=== PATIENT | male | born 1945 | race Hispanic/Latino ===

== ENCOUNTER → 2022-02-14 | Outpatient (CLI) | payer OTHER ==
[~2022-02-14] MED LIST: ACET-3673 PO; ATOR40TA69 PO; CHOL2000 PO; DOCU-116 PO; FERR324T4 PO; FLUO20CA36 PO; INSLAN SQ; LATA2.5D15 OU; LEVO25CA4 PO; METO25TA6 PO; PANT40GR PO; PYRI25TA4 PO; TAMS-1 PO
== END | disposition home or self-care (01) ==
LOC: SHCH 10:15
PROVIDERS: ATTEND Internal Medicine Cardiovascular Disease
DX: I08.1 Rheumatic disorders of both mitral and tricuspid valves (principal); I10 Essential (primary) hypertension
CPT/HCPCS: 93306

== ENCOUNTER 2022-09-20 14:22 | Inpatient (IN) | payer OTHER ==
[~2022-09-20] VITALS: Ht 167.6 cm; Wt 86.6 kg
[2022-09-20 15:37] LABS: BASOPHILS % (AUTO) 0.6 % (0.0-5.0); EOSINOPHILS % (AUTO) 4.5 % (0.0-8.0); HEMATOCRIT 29.6 % (42-54); LYMPHOCYTES % (AUTO) 11.7 % (21.0-51.0); MEAN CORPUSCULAR HEMOGLOBIN 30.8 pg (27.0-33.0); MEAN CORPUSCULAR HGB CONC 35.5 g/dL (32.0-36.0); MEAN CORPUSCULAR VOLUME 86.8 fL (79-99); MONOCYTES % (AUTO) 5.9 % (3.0-13.0); NEUTROPHILS % (AUTO) 76.8 % (40.0-77.0); PLATELET COUNT (AUTO) 271 K/uL (130-400); RED BLOOD CELL COUNT(AUTO) 3.41 MIL/uL (4.50-6.20); RED CELL DISTRIBUTION WIDTH 13.2 % (11.0-15.5); WHITE BLOOD COUNT (AUTO) 9.3 K/uL (4.8-10.8)
[2022-09-20 15:46] LABS: POTASSIUM 4.2 mmol/L (3.5-5.1)
[2022-09-20 15:51] LABS: ALBUMIN 3.8 g/dL (3.5-5.0)
[2022-09-20] MEDS ORDERED: ONDANSETRON 4MG INJ IVP PRN (17:00)
[2022-09-20] MEDS ORDERED: ACETAMINOPHEN 500 MG TABLET PO PRN (17:00)
[2022-09-20] MEDS: Vitamin B Complex/Vit C/Folic Acid PO SCH (17:19)
[2022-09-20] MEDS: SODIUM BICARBONATE 650 MG TAB PO SCH (17:19)
[2022-09-20] MEDS: 0.9%NACL 1000ML 1,000 ML IV SCH (17:19)
[2022-09-20] MEDS: PANTOPRAZOLE 40 MG/VIAL IVP SCH (17:19)
[2022-09-20 17:30] LABS: INR 0.95 (0.85-1.15); PROTHROMBIN TIME 10.4 SEC (9.6-11.6)
[2022-09-20 17:32] LABS: PARTIAL THROMBOPLASTIN TIME 25.9 SEC (26.3-35.5)
[2022-09-20 17:35] LABS: HEMOGLOBIN A1C 7.7 % (4.0-6.0)
[2022-09-20 17:37] LABS: MAGNESIUM 1.6 mg/dL (1.80-2.40); PHOSPHORUS 4.5 mg/dL (2.5-4.9)
[2022-09-20] MEDS ORDERED: TORS20TA4 PO (17:37)
[2022-09-20] MEDS ORDERED: ASPI-1197 PO (17:37)
[2022-09-20] MEDS ORDERED: FINA5TAB41 PO (17:37)
[2022-09-20] MEDS ORDERED: METF-446 PO (17:37)
[2022-09-20] MEDS ORDERED: GABA600T10 PO (17:37)
[2022-09-20] MEDS ORDERED: LISI5TAB21 PO (17:37)
[2022-09-20] MEDS ORDERED: FURO20TA4 PO (17:37)
[2022-09-20] MEDS ORDERED: EMPA25TA PO (17:37)
[2022-09-20 17:45] LABS: CRP QUANTITATIVE 12.5 mg/L (0.00-9.0); THYROID STIMULATING HORMONE 1.78 uIU/mL (0.36-3.74); URIC ACID 9.9 mg/dL (2.6-7.2)
[2022-09-20 18:02] LABS: APPEARANCE,URINE CLEAR (CLEAR); BILIRUBIN,URINE NEGATIVE (NEGATIVE); COLOR,URINE YELLOW (YELLOW); GLUCOSE, URINE (UA) >=1000 mg/dL (NEGATIVE); KETONES,URINE NEGATIVE (NEGATIVE); LEUKOCYTE ESTERASE ,URINE NEGATIVE Leu/uL (NEGATIVE); NITRATE,URINE NEGATIVE (NEGATIVE); OCCULT BLOOD,URINE NEGATIVE (NEGATIVE); PROTEIN,URINE NEGATIVE (NEGATIVE); UROBILINOGEN,URINE 0.2 mg/dL (0.2-1.0)
[2022-09-20 18:04] LABS: CREATININE,URINE RANDOM 26 mg/dL (30-135); SODIUM,URINE RANDOM 60 mmol/l (40-220)
[2022-09-20 18:12] LABS: BACTERIA,URINE None Seen /HPF (None Seen); RBC,URINE 0-1 /HPF (0-1); SQUAMOUS EPITHELIAL CELL,UR None Seen /HPF (0-2); WBC,URINE 0-1 /HPF (0-1)
[2022-09-20 20:35] VITALS: BP 145/62
[2022-09-20] MEDS: METOPROLOL TARTRATE 25 MG TAB PO SCH (21:27)
[2022-09-20] MEDS: DOCUSATE SODIUM 100 MG CAP PO SCH (21:27)
[2022-09-20] MEDS: TAMSULOSIN HCL 0.4 MG CAP.ER.24H PO SCH (21:28)
[2022-09-20] MEDS: ATORVASTATIN 40 MG TABLET PO SCH (21:28)
[2022-09-20] MEDS: INSULIN HUMULIN R 100 UNIT/ML 3ML SQ SCH (21:37)
[2022-09-20] MEDS ORDERED: INSULIN GLARGINE 100 UNITS/ML 10 ML VIAL SQ ONE (22:30)
[2022-09-21 00:25] VITALS: BP 146/71
[2022-09-21 04:21] VITALS: BP 140/61
[2022-09-21 05:21] LABS: BASOPHILS % (AUTO) 1.2 % (0.0-5.0); EOSINOPHILS % (AUTO) 7.2 % (0.0-8.0); HEMATOCRIT 30.9 % (42-54); LYMPHOCYTES % (AUTO) 16.7 % (21.0-51.0); MEAN CORPUSCULAR HEMOGLOBIN 29.6 pg (27.0-33.0); MONOCYTES % (AUTO) 6.8 % (3.0-13.0); NEUTROPHILS % (AUTO) 67.6 % (40.0-77.0); PLATELET COUNT (AUTO) 292 K/uL (130-400); RED BLOOD CELL COUNT(AUTO) 3.55 MIL/uL (4.50-6.20); RED CELL DISTRIBUTION WIDTH 13.2 % (11.0-15.5); WHITE BLOOD COUNT (AUTO) 7.5 K/uL (4.8-10.8)
[2022-09-21 05:42] LABS: ALANINE AMINOTRANSFERASE 25 U/L (12-78); ALBUMIN 3.9 g/dL (3.5-5.0); ASPARTATE AMINOTRANSFERASE 13 U/L (10-37); CARBON DIOXIDE 22 mmol/L (21-32); CHLORIDE 104 mmol/L (101-111); CREATININE 2.4 mg/dL (0.5-1.5); GLOMERULAR FILTR. RATE CALC 28 mL/min (>60); GLUCOSE,RANDOM 186 mg/dL (70-105); POTASSIUM 4.1 mmol/L (3.5-5.1); SODIUM SERUM 140 mmol/L (136-145); TOTAL PROTEIN, SERUM 7.1 g/dL (6.0-8.3)
[2022-09-21 05:44] LABS: UREA NITROGEN, BLOOD 95 mg/dL (7-18)
[2022-09-21] MEDS: SODIUM BICARBONATE 650 MG TAB PO SCH (06:37)
[2022-09-21] MEDS: LEVOTHYROXINE 25 MCG TABLET PO SCH (06:38)
[2022-09-21] MEDS: INSULIN HUMULIN R 100 UNIT/ML 3ML SQ SCH ×4 (06:38→20:35)
[2022-09-21] MEDS: 0.9%NACL 1000ML 1,000 ML IV SCH ×2 (07:18→20:37)
[2022-09-21] MEDS: **HM**(Cholecalciferol (Vitamin D3) (Vitamin D3) 50 MCG PO SCH (08:00)
[2022-09-21] MEDS: DOCUSATE SODIUM 100 MG CAP PO SCH ×2 (08:33→20:27)
[2022-09-21] MEDS: ASPIRIN 81 MG EC TAB PO SCH (08:33)
[2022-09-21] MEDS: METOPROLOL TARTRATE 25 MG TAB PO SCH ×2 (08:33→20:27)
[2022-09-21] MEDS: FLUOXETINE HCL 20 MG CAPSULE PO SCH (08:34)
[2022-09-21] MEDS: FINASTERIDE 5 MG TABLET PO SCH (08:34)
[2022-09-21] MEDS: PYRIDOXINE HCL 50 MG TABLET PO SCH (08:35)
[2022-09-21] MEDS ORDERED: PANTOPRAZOLE 40 MG/VIAL IVP SCH (09:00)
[2022-09-21] MEDS: FERROUS SULFATE 325 MG TABLET.DR PO SCH (09:52)
[2022-09-21 11:30] VITALS: BP 126/55
[2022-09-21 15:30] VITALS: BP 147/83
[2022-09-21] MEDS: Vitamin B Complex/Vit C/Folic Acid PO SCH (17:08)
[2022-09-21] MEDS: PANTOPRAZOLE 40 MG/VIAL IVP SCH (17:08)
[2022-09-21 20:00] VITALS: BP 121/63
[2022-09-21] MEDS: TAMSULOSIN HCL 0.4 MG CAP.ER.24H PO SCH (20:27)
[2022-09-21] MEDS: ATORVASTATIN 40 MG TABLET PO SCH (20:28)
[2022-09-21] MEDS ORDERED: INSULIN GLARGINE 100 UNITS/ML 10 ML VIAL SQ SCH ×2 (21:00)
[2022-09-21] MEDS: HEPARIN 5,000 UNIT VIAL SQ SCH (22:51)
[2022-09-22] VITALS: BP 144/59
[2022-09-22 04:00] VITALS: BP 157/70
[2022-09-22 05:10] LABS: EOSINOPHILS % (AUTO) 6.9 % (0.0-8.0); HEMATOCRIT 29.7 % (42-54); LYMPHOCYTES % (AUTO) 19.1 % (21.0-51.0); MEAN CORPUSCULAR HEMOGLOBIN 30.5 pg (27.0-33.0); MEAN CORPUSCULAR VOLUME 89.7 fL (79-99); MONOCYTES % (AUTO) 7.7 % (3.0-13.0); NEUTROPHILS % (AUTO) 64.7 % (40.0-77.0); PLATELET COUNT (AUTO) 282 K/uL (130-400); RED BLOOD CELL COUNT(AUTO) 3.31 MIL/uL (4.50-6.20); RED CELL DISTRIBUTION WIDTH 13.5 % (11.0-15.5); WHITE BLOOD COUNT (AUTO) 7.9 K/uL (4.8-10.8)
[2022-09-22 05:22] LABS: ALBUMIN 3.6 g/dL (3.5-5.0); CREATININE 1.8 mg/dL (0.5-1.5); MAGNESIUM 1.7 mg/dL (1.80-2.40); POTASSIUM 4.5 mmol/L (3.5-5.1); TOTAL PROTEIN, SERUM 6.6 g/dL (6.0-8.3)
[2022-09-22] MEDS: LEVOTHYROXINE 25 MCG TABLET PO SCH (05:49)
[2022-09-22] MEDS: INSULIN HUMULIN R 100 UNIT/ML 3ML SQ SCH ×4 (05:49→11:41)
[2022-09-22 07:30] VITALS: BP 138/62
[2022-09-22] MEDS: **HM**(Cholecalciferol (Vitamin D3) (Vitamin D3) 50 MCG PO SCH (08:00)
[2022-09-22] MEDS: FLUOXETINE HCL 20 MG CAPSULE PO SCH (08:53)
[2022-09-22] MEDS: ASPIRIN 81 MG EC TAB PO SCH (08:53)
[2022-09-22] MEDS: FINASTERIDE 5 MG TABLET PO SCH (08:53)
[2022-09-22] MEDS: FERROUS SULFATE 325 MG TABLET.DR PO SCH (08:53)
[2022-09-22] MEDS: DOCUSATE SODIUM 100 MG CAP PO SCH (08:53)
[2022-09-22] MEDS: METOPROLOL TARTRATE 25 MG TAB PO SCH (08:53)
[2022-09-22] MEDS: PYRIDOXINE HCL 50 MG TABLET PO SCH (08:54)
[2022-09-22] MEDS: HEPARIN 5,000 UNIT VIAL SQ SCH (08:56)
[2022-09-22] MEDS ORDERED: TAMS-1 PO (10:17)
[2022-09-22 11:00] VITALS: BP 133/79
[2022-09-22] MEDS ORDERED: INSLAN SQ (18:53)
== END 2022-09-22 12:05 | disposition home or self-care (01) | DRG 682 ==
LOC: EDH 14:22 → EDHIP 16:33 → 4AH 20:14
PROVIDERS: ADMIT Internal Medicine; ATTEND Internal Medicine
DX: N17.9 Acute kidney failure, unspecified (principal); G92.8 Other toxic encephalopathy; E87.1 Hypo-osmolality and hyponatremia; Z20.822 Contact with and (suspected) exposure to COVID-19; N18.30 Chronic kidney disease, stage 3 unspecified; D64.9 Anemia, unspecified; I25.10 Atherosclerotic heart disease of native coronary artery without angina pectoris; E03.9 Hypothyroidism, unspecified; N40.0 Benign prostatic hyperplasia without lower urinary tract symptoms; K21.9 Gastro-esophageal reflux disease without esophagitis; E11.65 Type 2 diabetes mellitus with hyperglycemia; E11.22 Type 2 diabetes mellitus with diabetic chronic kidney disease; E66.9 Obesity, unspecified; E78.00 Pure hypercholesterolemia, unspecified; E86.9 Volume depletion, unspecified; I12.9 Hypertensive chronic kidney disease with stage 1 through stage 4 chronic kidney disease, or unspecified chronic kidney disease; T42.6X5A Adverse effect of other antiepileptic and sedative-hypnotic drugs, initial encounter; Z68.30 Body mass index [BMI] 30.0-30.9, adult; Z79.4 Long term (current) use of insulin; Z79.84 Long term (current) use of oral hypoglycemic drugs; Z79.899 Other long term (current) drug therapy; Z95.1 Presence of aortocoronary bypass graft; Y92.89 Other specified places as the place of occurrence of the external cause
CPT/HCPCS: 36415; 70450; 71045; 76770; 80053; 81001; 82140; 82550; 82570; 82607; 82728; 82746; 82948; 83036; 83690; 83735; 84100; 84145; 84156; 84300; 84443; 84540; 84550; 85025; 85610; 85651; 85730; 86140; 87635; 87804; 93306; 96361; 96374; C9113; G0378; J1644; J1815; J7030

== ENCOUNTER → 2022-10-27 | Outpatient (CLI) | payer OTHER ==
[~2022-10-27] MED LIST changes: +ASPI-1197 PO; +EMPA25TA PO; +FINA5TAB41 PO; -LATA2.5D15 OU; +METF-446 PO
== END | disposition home or self-care (01) ==
LOC: RAH 14:30
PROVIDERS: ATTEND Internal Medicine
DX: E04.2 Nontoxic multinodular goiter (principal)
CPT/HCPCS: 76536